=== PATIENT | female | born 1955 | race Caucasian/White ===

== ENCOUNTER → 2016-11-28 | Day surgery (SDC) | payer OTHER ==
[~2016-11-28] VITALS: Ht 157.5 cm; Wt 94.3 kg
[~2016-11-28] MED LIST: 0.9% Sodium Chloride 1,000 ML IV SCH; AMOX-366 PO; CALC-190 PO; CALC625T PO; CETI10CA PO; CRES20T PO; CYCL10TA9 PO; DILT360C26 PO; DIPH1TAB PO; DOXA1TAB2 PO; FLUT16SP NS; HYDR25TA4 PO; MULT-621 PO; OMEP40CA36 PO; PARO10OR3 PO; PREG100C PO; RANI300C PO; Sodium Chloride LOK Flush 10 mL Syringe IV PRN; TELM40TA PO; TRAM50TA2 PO; VITA400C23 PO; ZLP5T PO; [UNRECOGNIZED DRUG - CODE] PO; fentaNYL-PF 50 mCg/mL 2 mL Inj IVPUSH PRN
[2016-11-28 08:27] VITALS: BP 135/85; PULSE 77; RESP 14; O2SAT 97
[2016-11-28 09:32] VITALS: BP 137/74; PULSE 87; RESP 14; O2SAT 99
[2016-11-28 09:45] VITALS: BP 138/77; PULSE 90; RESP 14; O2SAT 97
--- NOTE | 2016-11-28 10:27 | ENDO ---
[address] [address] ENDOSCOPY PROCEDURE PATIENT: KIM IBARRA : 1955 MR#: [id number] ADMIT: 11/28/2016 JOB ID: [id number] TYPE OF PROCEDURE: Colonoscopy. INDICATION: Screening, history of colon polyps. Patient's ASA classification is 2. Mallampati score is 2. MEDICATIONS: 1. Versed 5 mg. 2. Fentanyl 100 mcg. INSTRUMENT USED: PCF-H190AL PREP QUALITY: Poor. PROCEDURE DETAILS: After informed consent was obtained, the patient was brought to the GI suite, where she was placed on oxygen via nasal cannula and monitored with continuous pulse oximeter, telemetry, and blood pressure monitoring. A time-out was performed. Then, she was placed in a left lateral decubitus position and medications were administered for sedation. Digital rectal exam was performed and was unremarkable. Colonoscope was then inserted into the rectum and advanced under direct visualization to the cecum, which was identified by the presence of the ileocecal valve and appendiceal orifice. Once the cecum was reached, the colonoscope was withdrawn back into the rectum and mucosa and lumen were examined. In the rectum, retroflexion was performed. Following retroflexion, remaining air in the rectum was suctioned, and procedure was completed. FINDINGS: 1. Poor prep. We attempted to suction semi-solid stool that was scattered throughout the colon, however we were unsuccessful as the suction channel in the colonoscope became clogged. 2. In the cecum, we did appreciate an 8 mm sessile polyp that was removed with a hot snare. 3. No large lesions were seen, however, smaller lesions may have been missed. IMPRESSION: 1. Cecal polyp. 2. Poor prep. RECOMMENDATIONS: Repeat colonoscopy within the next six months. COMPLICATIONS: None. ESTIMATED BLOOD LOSS: Zero.
--- NOTE | 2016-11-29 14:35 | PATH ---
SURGICAL PATHOLOGY Attending Physician:Ivelisse Alcaraz CASE STATUS: Signed Out PATIENT NAME: KIM IBARRA PID: [id number] : 1955 DATE COLLECTED:11/28/2016 21:20 SPECIMEN: Colon, Polyp CLINICAL HISTORY: PERSONAL HISTORY POLYPS 1). 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 ICD10: K63.5 GROSS DESCRIPTION: The specimen is received in one formalin filled container labeled with the patient's name, sublabeled "cecal polyp" and consists of multiple portions of tissue which aggregate to 0.5 x 0.3 x 0.2 CM. The specimen is entirely submitted in one cassette. 11/28/2016DC ICD-9 CODES: CPT CODES: 1: 85176 Electronically Signed Out Lissa Arredondo MD [facility] [address], [place] [address] Technical component performed at [facility], [facility] [address], [address]
== END | disposition home or self-care (01) ==
LOC: END 00:44
PROVIDERS: ATTEND Internal Medicine Gastroenterology
DX: Z12.11 Encounter for screening for malignant neoplasm of colon (principal); D12.0 Benign neoplasm of cecum; M81.8 Other osteoporosis without current pathological fracture; I10 Essential (primary) hypertension; K21.0 Gastro-esophageal reflux disease with esophagitis; R13.10 Dysphagia, unspecified; K58.9 Irritable bowel syndrome, unspecified; E78.5 Hyperlipidemia, unspecified; G47.33 Obstructive sleep apnea (adult) (pediatric); M79.7 Fibromyalgia; Z86.010 Personal history of colon polyps; Z79.899 Other long term (current) drug therapy
CPT/HCPCS: 45385; 88305; 99153; G0500; J2250; J3010; J7030